=== PATIENT | female | born 1955 | race Two or more races ===

== ENCOUNTER 2024-07-27 19:26 | Emergency (ER) | payer OTHER ==
[~2024-07-27] VITALS: Ht 165.1 cm; Wt 73.0 kg
[2024-07-27 19:31] VITALS: O2SAT 97
[2024-07-28] MEDS ORDERED: IBUPROFEN 400MG TABLET PO ONE (01:30)
[2024-07-28] MEDS ORDERED: CLONIDINE 0.2MG TABLET PO ONE (01:30)
[2024-07-28] MEDS: CLONIDINE 0.1MG TABLET PO NR (02:03)
[2024-07-28] MEDS: TETANUS, DIPHTHERIA, PERTUSSIS VAC/PF 0.5ML (>10YR OLD) IM ONE (02:04)
[2024-07-28] MEDS: IBUPROFEN 400MG TABLET PO NR (02:05)
[2024-07-28] MEDS ORDERED: IBUP-2029 MT (02:41)
[2024-07-28] MEDS ORDERED: AMOX1TAB16 MT (02:41)
[2024-07-28 02:51] VITALS: BP 139/87; PULSE 74; RESP 16; TEMP 36.66960; O2SAT 99
== END 2024-07-28 03:07 | disposition home or self-care (01) ==
LOC: ER 19:26
DX: I16.0 Hypertensive urgency (principal); I10 Essential (primary) hypertension; M25.551 Pain in right hip; W54.0XXA Bitten by dog, initial encounter; Y93.89 Activity, other specified; Y92.89 Other specified places as the place of occurrence of the external cause; Y99.8 Other external cause status
CPT/HCPCS: 73502; 73552; 90471; 90715; 99284